=== PATIENT | female | born 1975 | race Two or more races ===

== ENCOUNTER 2021-05-04 14:22 | Emergency (ER) | payer MEDICAID, OTHER ==
[~2021-05-04] VITALS: Ht 157.5 cm; Wt 72.6 kg
[2021-05-04 18:44] VITALS: BP 115/66
[2021-05-04] MEDS ORDERED: ACETAMINOPHEN 500 MG TAB PO ONE (20:00)
== END 2021-05-04 21:31 | disposition home or self-care (01) ==
LOC: ER 14:22 → EDBD 14:22 → ER 21:31
DX: S13.9XXA Sprain of joints and ligaments of unspecified parts of neck, initial encounter (principal); S33.5XXA Sprain of ligaments of lumbar spine, initial encounter; M62.838 Other muscle spasm; R51.9 Headache, unspecified; V43.52XA Car driver injured in collision with other type car in traffic accident, initial encounter; Y93.89 Activity, other specified; Y92.488 Other paved roadways as the place of occurrence of the external cause; Y99.8 Other external cause status
CPT/HCPCS: 70450; 72125; 72131; 93005